=== PATIENT | female | born 1970 | race Two or more races ===

== ENCOUNTER 2020-08-17 12:21 | Outpatient (CLI) | payer BC ==
--- NOTE | 2020-08-17 13:48 | RAD ---
2 VIEW CHEST: Date: 08/17/2020 INDICATION: Positive TB skin test. FINDINGS: Lung lewis are clear. Heart and mediastinum appear normal. Osseous structures unremarkable. No evide nce of primary or secondary TB. IMPRESSION: Unremarkable chest. POS: [id number]
== END 2020-08-17 12:22 | disposition home or self-care (01) ==
LOC: BICRAD 12:21
PROVIDERS: ATTEND Family Medicine
DX: R76.11 Nonspecific reaction to tuberculin skin test without active tuberculosis (principal)
CPT/HCPCS: 71046

== ENCOUNTER 2021-05-25 09:44 | Outpatient (CLI) | payer BC | END 2021-05-25 09:45 | disposition home or self-care (01) | LOC: BICRAD 09:44 | PROVIDERS: ATTEND Family Medicine | DX: Z11.1 Encounter for screening for respiratory tuberculosis (principal) | CPT/HCPCS: 71046 ==